=== PATIENT | male | born 1985 | race African-American/Black ===

== ENCOUNTER 2017-11-29 13:57 | Emergency (ER) | payer OTHER ==
[~2017-11-29] VITALS: Ht 172.7 cm; Wt 73.9 kg
[2017-11-29] MEDS ORDERED: Unasyn 3gm Inj ONE (14:28)
[2017-11-29] MEDS ORDERED: Ampicillin/Sulbactam Sod 3 GM in NS 110 ML IVPB ONE (14:30)
[2017-11-29 14:47] LABS: HEMATOCRIT 42.9 % (42.0-52.0); HEMOGLOBIN 14.7 G/DL (14.2-18.0); MEAN CORPUSCULAR VOLUME 96 FL (80-99); PLATELET COUNT 422 K/UL (150-450); RED BLOOD COUNT 4.45 M/UL (4.70-6.10); RED CELL DISTRIBUTION WIDTH 11.7 % (11.6-14.8); WHITE BLOOD COUNT 19.3 K/UL (4.8-10.8)
[2017-11-29 15:05] LABS: ANION GAP 6 mmol/L (5-15); BLOOD UREA NITROGEN 11 mg/dL (7-18); CALCIUM 9.7 MG/DL (8.5-10.1); CARBON DIOXIDE 29 MMOL/L (21-32); CHLORIDE 102 MMOL/L (98-107); CREATININE 0.9 MG/DL (0.55-1.30); POTASSIUM 3.7 MMOL/L (3.5-5.1); SODIUM 137 MMOL/L (136-145)
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
[2017-11-29 15:13] LABS: ALANINE AMINOTRANSFERASE 63 U/L (12-78); ALBUMIN 4.2 G/DL (3.4-5.0); ALKALINE PHOSPHATASE 80 U/L (46-116); ASPARTATE AMINO TRANSFERASE 48 U/L (15-37); BILIRUBIN,TOTAL 0.7 MG/DL (0.2-1.0)
[2017-11-29] MEDS ORDERED: Morphine Sulfate 4mg/ml Inj IVP ONE (15:45)
[2017-11-29] MEDS ORDERED: ACETAMINOPHEN-1 EAC1 ORAL (16:37)
[2017-11-29] MEDS ORDERED: AUGMENTIN 875-1 EAC1 ORAL (16:37)
[2017-11-29] MEDS ORDERED: IBUPROFEN600 MG ORAL (16:37)
[2017-11-29 16:42] VITALS: BP 149/85
[2017-11-29 16:43] VITALS: BP 149/85
--- NOTE | 2017-11-30 10:15 | Diagnostic Imaging Report ---
Indication: Reason For Exam: PAIN Technique: 3 views left hand Comparison: none Findings: No acute fractures. No dislocations. The joint spaces are preserved Impression: Negative
== END 2017-11-29 16:49 | disposition left against medical advice (07) ==
LOC: EMR 14:25
DX: L03.012 Cellulitis of left finger (principal); J45.909 Unspecified asthma, uncomplicated
CPT/HCPCS: 36415; 73130; 80053; 85007; 85025; 85610; 85730; 96361; 96374; 99284; J0295; J2270

== ENCOUNTER 2017-11-30 12:22 | Inpatient (IN) | payer OTHER ==
[~2017-11-30] VITALS: Ht 172.7 cm; Wt 73.9 kg
[~2017-11-30 12:22] MED LIST: ACETAMINOPHEN-1 EAC1 ORAL; AUGMENTIN 875-1 EAC1 ORAL; IBUPROFEN600 MG ORAL
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
[2017-11-30 14:41] LABS: BASOPHILS % (AUTO) 1.5 % (0.0-2.0); EOSINOPHILS % (AUTO) 1.2 % (0.0-3.0); HEMATOCRIT 45.1 % (42.0-52.0); HEMOGLOBIN 15.5 G/DL (14.2-18.0); LYMPHOCYTES % (AUTO) 32.9 % (20.0-45.0); MEAN CORPUSCULAR VOLUME 96 FL (80-99); MONOCYTES % (AUTO) 9.1 % (1.0-10.0); NEUTROPHILS % (AUTO) 55.3 % (45.0-75.0); PLATELET COUNT 417 K/UL (150-450); RED CELL DISTRIBUTION WIDTH 11.6 % (11.6-14.8); WHITE BLOOD COUNT 10.7 K/UL (4.8-10.8)
[2017-11-30 14:53] LABS: ANION GAP 10 mmol/L (5-15); BLOOD UREA NITROGEN 14 mg/dL (7-18); CALCIUM 9.1 MG/DL (8.5-10.1); CARBON DIOXIDE 27 MMOL/L (21-32); CHLORIDE 101 MMOL/L (98-107); CREATININE 1.2 MG/DL (0.55-1.30); POTASSIUM 4.2 MMOL/L (3.5-5.1); SODIUM 138 MMOL/L (136-145)
[2017-11-30 15:01] LABS: ALANINE AMINOTRANSFERASE 61 U/L (12-78); ALBUMIN 4.1 G/DL (3.4-5.0); ALBUMIN/GLOBULIN RATIO 0.9 (1.0-2.7); ALKALINE PHOSPHATASE 81 U/L (46-116); ASPARTATE AMINO TRANSFERASE 45 U/L (15-37); BILIRUBIN,TOTAL 0.5 MG/DL (0.2-1.0)
[2017-11-30 15:25] LABS: CKMB 1.2 NG/ML (0.0-3.6)
[2017-11-30] MEDS ORDERED: Miralax 17gm pkt ORAL PRN (15:45)
[2017-11-30] MEDS ORDERED: Albuterol/Ipratropium 3ml neb HHN PRN (15:45)
[2017-11-30] MEDS ORDERED: Nitroglycerin Subl 0.4mg tab SL PRN (15:45)
[2017-11-30 15:50] VITALS: BP 129/87
[2017-11-30 16:30] VITALS: BP 136/66
[2017-11-30] MEDS: Morphine Sulfate 2mg/ml Inj IVP PRN ×2 (16:36→20:32)
[2017-11-30] MEDS: Cefepime HCl 2 GM in NS 110 ML IV SCH (17:49)
[2017-11-30] MEDS: Vancomycin 1 GM in D5W 275 ML IVPB SCH (19:22)
[2017-11-30 20:00] VITALS: BP 133/73
[2017-11-30] MEDS: Heparin 5000 units/ml inj SUBQ SCH (20:33)
[2017-12-01] VITALS (7 sets, daily range): BP systolic 112–157; BP diastolic 54–96
[2017-12-01] MEDS: Morphine Sulfate 2mg/ml Inj IVP PRN ×3 (00:32→10:43)
[2017-12-01] MEDS: Vancomycin 1 GM in D5W 275 ML IVPB SCH (05:53)
[2017-12-01] MEDS: Heparin 5000 units/ml inj SUBQ SCH ×2 (08:30→20:26)
[2017-12-01 08:45] LABS: BASOPHILS % (AUTO) 1.5 % (0.0-2.0); EOSINOPHILS % (AUTO) 1.9 % (0.0-3.0); HEMATOCRIT 42.2 % (42.0-52.0); HEMOGLOBIN 14.2 G/DL (14.2-18.0); LYMPHOCYTES % (AUTO) 36.7 % (20.0-45.0); MEAN CORPUSCULAR VOLUME 97 FL (80-99); MONOCYTES % (AUTO) 11.6 % (1.0-10.0); NEUTROPHILS % (AUTO) 48.3 % (45.0-75.0); PLATELET COUNT 434 K/UL (150-450); RED BLOOD COUNT 4.34 M/UL (4.70-6.10); RED CELL DISTRIBUTION WIDTH 11.8 % (11.6-14.8); WHITE BLOOD COUNT 8.5 K/UL (4.8-10.8)
[2017-12-01] MEDS: Cefepime HCl 2 GM in NS 110 ML IV SCH (09:33)
[2017-12-01 09:37] LABS: ALANINE AMINOTRANSFERASE 61 U/L (12-78); ALBUMIN 3.5 G/DL (3.4-5.0); ALBUMIN/GLOBULIN RATIO 0.9 (1.0-2.7); ALKALINE PHOSPHATASE 68 U/L (46-116); ANION GAP 7 mmol/L (5-15); ASPARTATE AMINO TRANSFERASE 43 U/L (15-37); BILIRUBIN,TOTAL 0.4 MG/DL (0.2-1.0); BLOOD UREA NITROGEN 7 mg/dL (7-18); CALCIUM 8.9 MG/DL (8.5-10.1); CARBON DIOXIDE 28 MMOL/L (21-32); CHLORIDE 104 MMOL/L (98-107); POTASSIUM 4.4 MMOL/L (3.5-5.1); SODIUM 139 MMOL/L (136-145)
[2017-12-01] MEDS ORDERED: Morphine Sulfate 2mg/ml Inj IVP ONE (13:10)
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
--- NOTE | 2017-12-01 13:53 | Consultation ---
Consult Note Consult Note ID DIC # [id number] LARISA SANTORO M.D. Dec 01, 2017 13:53
[2017-12-01] MEDS: Ampicillin/Sulbactam Sod 1.5 GM in NS 55 ML IVPB SCH ×3 (15:32→22:59)
[2017-12-01] MEDS: Morphine Sulfate 4mg/ml Inj IVP PRN ×2 (15:56→21:52)
--- NOTE | 2017-12-01 16:31 | Cardiology Report ---
APPROVED REPORT EKG Measurement Heart [id number] Normal sinus rhythm Possible Left atrial enlargement Non specific T wave abnormality, Abnormal ECG
--- NOTE | 2017-12-01 16:49 | Diagnostic Imaging Report ---
Indication: Middle finger trauma. Subsequent soft tissue swelling. Concern for infection Technique: Left third digit of the hand imaging utilizing multiplanar T1 fast spin-echo, proton and T2 fast spin-echo with fat saturation, and STIR. Comparison: None Findings: There is abnormal soft tissue swelling involving the extensor aspect of the third PIP joint. This is characterized by infiltration and edema of the subcutaneous fat as well as attenuation of the distal fibers of the extensor mechanism or more specifically the third extensor digitorum tendon centrally. Rupture of the tendon is suspected focally just proximal to the PIP joint. Bone marrow signal appears normal. There is no evidence of osteomyelitis. No joint effusion seen. IMPRESSION: Suspected injury to the distal aspect of the third extensor digitorum tendon at the proximal aspect of the third PIP joint. Soft tissue swelling noted. Superimposed infection not excluded. No evidence of acute osteomyelitis.
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
[2017-12-02 04:00] VITALS: BP 128/82
[2017-12-02] MEDS: Ampicillin/Sulbactam Sod 1.5 GM in NS 55 ML IVPB SCH ×2 (05:06→12:41)
[2017-12-02] MEDS: Morphine Sulfate 4mg/ml Inj IVP PRN (07:56)
[2017-12-02 08:00] VITALS: BP 130/82
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
[2017-12-02] MEDS: Heparin 5000 units/ml inj SUBQ SCH (09:00)
[2017-12-02 12:02] VITALS: BP 128/80
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
--- NOTE | 2017-12-02 14:32 | Wound Nurse Progress Note ---
Wound RN Progress Note Wound Consult No further recommendations pt is under the care of -follow orders ASHU CEDENO Dec 02, 2017 14:32
[2017-12-02] MEDS ORDERED: NS 500ML ONE (17:07)
--- NOTE | 2017-12-02 17:59 | Pulmonology Progress Note ---
Assessment/Plan Problems: (1) Cellulitis of finger of left hand Assessment/Plan ID wrote for oral prescription, D/w surgeon pt needs to f/u with hand surgeon in a few weeks. he understood this. Subjective ROS Limited/Unobtainable: No Allergies: Coded Allergies: No Known Allergies (Unverified , 11/29/17) Objective Last 24 Hour Vital Signs Date Time Temp Pulse Resp B/P (MAP) Pulse Ox O2 Delivery O2 Flow Rate FiO2 12/02/17 12:02 97.5 60 22 128/80 96 97.5 12/02/17 08:26 97.0 12/02/17 08:00 97.0 70 12 130/82 95 97.0 12/02/17 07:56 97.9 12/02/17 04:00 97.9 73 22 128/82 100 97.9 12/01/17 23:47 97.9 69 18 112/56 95 97.9 12/01/17 21:52 97.7 12/01/17 19:51 97.7 68 18 117/54 94 97.7 12/01/17 19:00 66 22 Room Air 21 Intake and Output 12/01/17 12/02/17 19:00 07:00 Intake Total 840 ml Balance 840 ml Intake Oral 840 ml # Voids 5 3 # Bowel Movements 1 Objective General Appearance: WD/WN Lines, tubes and drains: peripheral HEENT: normocephalic, atraumatic Neck: non-tender, normal alignment Respiratory/Chest: chest wall non-tender, lungs clear Cardiovascular/Chest: normal peripheral pulses, normal rate Abdomen: normal bowel sounds, non tender Extremities: normal range of motion, non-tender Skin Exam: normal pigmentation Microbiology Date/Time Source Procedure Growth Status 12/01/17 13:45 Finger Left Middle Gram Stain - Final Resulted 12/01/17 13:45 Finger Left Middle Wound Culture - Preliminary NO GROWTH Resulted CAESAR AMEZCUA Dec 02, 2017 17:59
--- NOTE | 2017-12-03 14:48 | Discharge Summary ---
Discharge Summary Hospital Course Date of Admission Nov 30, 2017 at 14:36 Date of Discharge Dec 02, 2017 at 17:08 Admitting Diagnosis tenosynovitis HPI Jesse Bautista is a 32 year old male who was admitted on Nov 30, 2017 at 14:36 for Tenosynovitis Hospital Course [id number] Discharge Discharge Disposition Patient was discharged to Home (01) Discharge Diagnoses: Christina Orellana NP Dec 03, 2017 14:47
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
--- NOTE | 2017-12-04 10:28 | Diagnostic Imaging Report ---
APPROVED REPORT CPT Code: 02511 Present Symptoms Comments: R/O DVT BILATERAL: Imaging reveals a patent deep venous system bilaterally. There is no evidence of thrombus within the femoral, popliteal or tibial segments. The greater saphenous veins are also within normal limits. Doppler indicates normal spontaneous flow within these segments.
== END 2017-12-02 17:08 | disposition home or self-care (01) | DRG 383 ==
LOC: EMR 13:45 → 4W 14:36 → EDBEDREQ 14:54
DX: L03.012 Cellulitis of left finger (principal); S61.213D Laceration without foreign body of left middle finger without damage to nail, subsequent encounter; X99.8XXD Assault by other sharp object, subsequent encounter
CPT/HCPCS: 36415; 80053; 82553; 85025; 85610; 85730; 87070; 87205; 93005; 93970; 94664; 99285